=== PATIENT | female | born 1980 | race Caucasian/White ===

== ENCOUNTER → 2024-12-22 | Outpatient (CLI) | payer OTHER ==
[~2024-12-22] MED LIST: CEPH500 PO; GUAPHELA PO; HYDGUAL120 PO; NITR100CA PO; ONDA4 PO; OXYACE5T PO; PROACE100 PO; PROM25 PO; RXPROACE PO; SULTRIDS PO
== END | disposition home or self-care (01) ==
LOC: LAB 17:43 → LAB SHORT 17:43
DX: A49.02 Methicillin resistant Staphylococcus aureus infection, unspecified site (principal)
CPT/HCPCS: 87070; 87205